=== PATIENT | male | born 1980 | race African-American/Black ===

== ENCOUNTER 2017-12-21 19:24 | Emergency (ER) | payer MEDICAID ==
[~2017-12-21] VITALS: Ht 182.9 cm; Wt 154.2 kg
[~2017-12-21 19:24] MED LIST: [UNRECOGNIZED DRUG - REMARK]
[2017-12-21 19:40] VITALS: BP 159/105
[2017-12-21 20:14] LABS: BASOPHILS % (AUTO) 0.5 % (0.0-2.0); EOSINOPHILS % (AUTO) 7.1 % (0.0-6.0); HEMATOCRIT 38 % (39-51); HEMOGLOBIN 12.6 g/dL (13.5-17.5); LYMPHOCYTES # (AUTO) 2.4 /CMM (0.8-4.8); LYMPHOCYTES % (AUTO) 37.8 % (20.0-44.0); MEAN CORPUSCULAR HGB CONC 33 g/dl (31.0-36.0); MEAN CORPUSCULAR VOLUME 74 fL (80-96); MONOCYTES # (AUTO) 0.6 /CMM (0.1-1.30); MONOCYTES % (AUTO) 9.2 % (2.0-12.0); NEUTROPHILS # (AUTO) 2.9 /CMM (1.8-8.9); NEUTROPHILS % (AUTO) 45.4 % (43.0-81.0); PLATELET COUNT (AUTO) 314 /CMM (150-450); RDW COEFFICIENT OF VARIATION 14.9 (11.5-15.0); RED BLOOD CELL COUNT(AUTO) 5.21 MIL/uL (4.5-6.0); WHITE BLOOD COUNT (AUTO) 6.4 K/uL (4.3-11.0)
== END 2017-12-21 20:13 | disposition home or self-care (01) ==
LOC: ER 19:24
DX: K92.1 Melena (principal)
CPT/HCPCS: 36415; 85025; 99283; A4606; Z7610

== ENCOUNTER 2019-01-19 23:18 | Emergency (ER) | payer SELFPAY ==
--- NOTE | 2019-01-19 23:47 | NUR ---
CALLED TO BE TRIAGED, NO ANSWER
--- NOTE | 2019-01-19 23:55 | NUR ---
CALLED PT TO BE TRIAGED, NO ANSWER
--- NOTE | 2019-01-20 01:00 | NUR ---
CALLED PT TO BE TRIAGED, NO ANSWER
== END 2019-01-20 01:05 | disposition left against medical advice (07) ==
LOC: ER 23:25
DX: Z53.21 Procedure and treatment not carried out due to patient leaving prior to being seen by health care provider (principal)

== ENCOUNTER 2019-01-24 20:26 | Emergency (ER) | payer SELFPAY ==
[~2019-01-24] VITALS: Ht 182.9 cm; Wt 148.3 kg
--- NOTE | 2019-01-24 21:52 | NUR ---
PT NAME CALLED IN WAITING AREA. NO RESPONSE.
--- NOTE | 2019-01-24 22:13 | NUR ---
PATIENT LEFT BEFORE TRIAGE ASSESSMENT.
[2019-01-24 22:54] VITALS: BP 160/111
--- NOTE | 2019-01-24 23:00 | NUR ---
PT RETURNED AND WAS TRIAGED. PT AMBULATED TO THE BATHROOM AND A URINE SAMPLE WAS OBTAINED. PT THEN AMBULATED TO ER #4. Doe VELÁSQUEZ PAC IS AT THE BEDSIDE.
[2019-01-24 23:18] LABS: APPEARANCE,URINE Clear (CLEAR); BILIRUBIN,URINE Negative (NEGATIVE); BLOOD, URINE Negative Ery/uL (NEGATIVE); COLOR,URINE Yellow (YELLOW); KETONES,URINE Trace (NEGATIVE); LEUKOCYTE ESTERASE ,URINE Negative (NEGATIVE); NITRITE, URINE Negative (NEGATIVE); PH,URINE 5.5 (5.0-8.0); PROTEIN,URINE Negative (NEGATIVE); UGLUCOSE Negative (NEGATIVE)
[2019-01-24] MEDS ORDERED: AZITHROMYCIN 250 MG TABLET ONE (23:27)
[2019-01-24] MEDS ORDERED: METRONIDAZOLE 500 MG TABLET ONE (23:27)
[2019-01-24] MEDS ORDERED: LIDOCAINE /MPF 1% VIAL 5 ML VIAL ONE (23:27)
[2019-01-24] MEDS ORDERED: CEFTRIAXONE 500 MG VIAL ONE (23:27)
[2019-01-24 23:29] LABS: BACTERIA,URINE Few /HPF (None Seen); RBC,URINE 0-2 /HPF (0-2); SQUAMOUS EPITHELIAL CELL,UR Rare /HPF (None Seen)
[2019-01-24] MEDS: METRONIDAZOLE 500 MG TABLET PO ONE (23:30)
[2019-01-24] MEDS: AZITHROMYCIN 250 MG TABLET PO ONE (23:30)
[2019-01-24] MEDS: CEFTRIAXONE 500 MG VIAL IM ONE (23:30)
--- NOTE | 2019-01-24 23:30 | NUR ---
PT REC'D MEDICATION ORDERED.
--- NOTE | 2019-01-24 23:50 | NUR ---
Doe VELÁSQUEZ PA-C IS AT THE BEDSIDE SPEAKING TO THE PT AND HIS .
--- NOTE | 2019-01-25 00:01 | NUR ---
Patient discharged to home in stable condition. Written and verbal after care instructions given. Patient verbalizes understanding of instruction. PT AMBULATED OUT WITH A STEADY GAIT. VSS. NAD NOTED.
== END 2019-01-25 00:12 | disposition left against medical advice (07) ==
LOC: ER 20:29
DX: Z20.2 Contact with and (suspected) exposure to infections with a predominantly sexual mode of transmission (principal); F17.200 Nicotine dependence, unspecified, uncomplicated
CPT/HCPCS: 81001; 87086; 87491; 87591; 96372; 99283; J0696; J3490; 81000-TC

== ENCOUNTER 2019-07-22 15:39 | Emergency (ER) | payer SELFPAY ==
[~2019-07-22] VITALS: Ht 182.9 cm; Wt 147.4 kg
--- NOTE | 2019-07-22 16:04 | NUR ---
PT BIB C/O CHEST PAIN PRESSURE LIKE NON RADIATING STARTED THIS THROAT PAIN FOR 2 DAYS. PT AAOX4, VSS, BREATHING EVEN AND UNLABORED ON ROOM AIR W/ NAD NOTED. PT CONNECTED TO THE MONITOR AND POX
[2019-07-22] MEDS ORDERED: KETOROLAC TROMETHAMINE 15 MG/ML VIAL ONE (16:29)
[2019-07-22] MEDS ORDERED: ASPIRIN 81 MG TAB.CHEW ONE (16:29)
[2019-07-22] MEDS ORDERED: DEXAMETHASONE SOD PHOSPHATE 10 MG/ML VIAL ONE (16:29)
[2019-07-22] MEDS ORDERED: ASPIRIN 81 MG TAB.CHEW PO ONE (16:30)
[2019-07-22] MEDS ORDERED: IV NS 0.9% 1,000 ML BAG IV ONE (16:30)
[2019-07-22] MEDS ORDERED: KETOROLAC TROMETHAMINE INJ 30 MG/ML VIAL IV ONE (16:30)
[2019-07-22] MEDS ORDERED: DEXAMETHASONE SOD PHOSPHATE 10 MG/ML VIAL IV ONE (16:30)
[2019-07-22 16:35] LABS: BASOPHILS # (AUTO) 0.1 /CMM (0.0-0.2); BASOPHILS % (AUTO) 0.6 % (0.0-2.0); HEMATOCRIT 34 % (39-51); HEMOGLOBIN 10.3 g/dL (13.5-17.5); LYMPHOCYTES # (AUTO) 1.5 /CMM (0.8-4.8); LYMPHOCYTES % (AUTO) 15.3 % (20.0-44.0); MEAN CORPUSCULAR HGB CONC 31 g/dl (31.0-36.0); MEAN CORPUSCULAR VOLUME 68 fL (80-96); MONOCYTES # (AUTO) 0.9 /CMM (0.1-1.30); MONOCYTES % (AUTO) 9.3 % (2.0-12.0); NEUTROPHILS # (AUTO) 6.5 /CMM (1.8-8.9); NEUTROPHILS % (AUTO) 67.8 % (43.0-81.0); PLATELET COUNT (AUTO) 303 /CMM (150-450); RED BLOOD CELL COUNT(AUTO) 4.92 MIL/uL (4.5-6.0); WHITE BLOOD COUNT (AUTO) 9.6 K/uL (4.3-11.0)
[2019-07-22 16:52] LABS: CALCIUM, SERUM 8.8 mg/dL (8.5-10.1); CARBON DIOXIDE 29 mmol/L (21-32); CHLORIDE 106 mmol/L (98-107); GLUCOSE 90 mg/dL (74-106); POTASSIUM 4.1 mmol/L (3.5-5.1); SODIUM SERUM 141 mmol/L (136-145); UREA NITROGEN, BLOOD 12 mg/dL (7-18)
[2019-07-22 16:56] LABS: ALANINE AMINOTRANSFERASE 39 U/L (12-78); ALBUMIN 3.1 g/dL (3.4-5.0); ALKALINE PHOSPHATASE 99 U/L (46-116); ASPARTATE AMINOTRANSFERASE 25 U/L (15-37); BILIRUBIN,TOTAL 0.2 mg/dL (0.2-1.0); TOTAL PROTEIN, SERUM 8.1 g/dL (6.4-8.2)
--- NOTE | 2019-07-22 17:35 | NUR ---
SWAB SENT TO LAB
[2019-07-22 17:55] LABS: EOSINOPHILS % (MANUAL) 2 % (0-4); LYMPHOCYTES % (MANUAL) 10 % (16-48); MONOCYTES % (MANUAL) 12 % (0-11.0); NEUTROPHILS % (MANUAL) 73 (42-76); REACTIVE LYMPHOCYTES 3 % (0-0)
[2019-07-22] MEDS ORDERED: PENICILLIN G BENZATHINE 2.4 MMU/4 ML ML IM ONE ×2 (18:58→19:00)
[2019-07-22 19:13] VITALS: BP 135/81
--- NOTE | 2019-07-22 19:13 | NUR ---
Patient discharged to home in stable condition. Written and verbal after care instructions given. Patient verbalizes understanding of instruction.IV removed. Catheter intact and site benign. Pressure and 4x4 applied to site. No bleeding noted.
== END 2019-07-22 19:16 | disposition home or self-care (01) ==
LOC: ER 15:44
DX: J02.0 Streptococcal pharyngitis (principal); R00.2 Palpitations; R59.0 Localized enlarged lymph nodes; R11.0 Nausea; R09.81 Nasal congestion; F10.10 Alcohol abuse, uncomplicated; F17.200 Nicotine dependence, unspecified, uncomplicated; R00.0 Tachycardia, unspecified; Y90.9 Presence of alcohol in blood, level not specified
CPT/HCPCS: 36415; 71045; 80048; 80076; 84484; 85025; 87804 ×2; 87880; 93005; 96372; 96374; 96375; 99284; J0558; J1100; J1885; 86403-TC

== ENCOUNTER 2019-11-30 22:33 | Emergency (ER) | payer SELFPAY ==
[~2019-11-30] VITALS: Ht 182.9 cm; Wt 152.0 kg
--- NOTE | 2019-11-30 22:50 | NUR ---
PT AAOX4. AMBULATORY WITH STEADY GAIT. BIBSELF C/O REQUESTING STD PROPHALAXIS DUE TO UNPROTECTED SEX PER PT REPORT. PT PROVIDED URINE SAMPLE. VSS.
[2019-11-30] MEDS ORDERED: AZITHROMYCIN 250 MG TABLET ONE (23:04)
[2019-11-30] MEDS ORDERED: CEFTRIAXONE 500 MG VIAL ONE (23:04)
[2019-11-30] MEDS ORDERED: LIDOCAINE /MPF 1% VIAL 5 ML VIAL ONE (23:05)
[2019-11-30] MEDS ORDERED: METRONIDAZOLE 500 MG TABLET ONE (23:08)
[2019-11-30] MEDS: AZITHROMYCIN 250 MG TABLET PO ONE (23:12)
[2019-11-30] MEDS: CEFTRIAXONE 500 MG VIAL IM ONE (23:12)
[2019-11-30] MEDS: METRONIDAZOLE 500 MG TABLET PO ONE (23:12)
[2019-11-30 23:16] LABS: APPEARANCE,URINE Clear (CLEAR); BILIRUBIN,URINE Negative (NEGATIVE); BLOOD, URINE Negative Ery/uL (NEGATIVE); COLOR,URINE Yellow (YELLOW); KETONES,URINE Negative (NEGATIVE); LEUKOCYTE ESTERASE ,URINE Negative (NEGATIVE); NITRITE, URINE Negative (NEGATIVE); PROTEIN,URINE Negative (NEGATIVE); UGLUCOSE Negative (NEGATIVE); UROBILINOGEN,URINE 0.2 EU/dL (0.2)
--- NOTE | 2019-12-01 00:02 | NUR ---
Patient discharged to home in stable condition. Written and verbal after care instructions given. Patient verbalizes understanding of instruction. Pt ambulated with steady gait.
[2019-12-01 00:03] VITALS: BP 128/82
== END 2019-12-01 00:03 | disposition home or self-care (01) ==
LOC: ER 22:33
DX: Z20.2 Contact with and (suspected) exposure to infections with a predominantly sexual mode of transmission (principal); F17.200 Nicotine dependence, unspecified, uncomplicated
CPT/HCPCS: 81001; 87491; 87591; 96372; 99283; J0696; J3490; 81000-TC

== ENCOUNTER 2020-11-29 18:31 | Inpatient (IN) | payer MEDICAID ==
[~2020-11-29] VITALS: Ht 182.9 cm; Wt 160.3 kg
[2020-11-29] MEDS ORDERED: IV NS 0.9% 1,000 ML BAG IV ONE (19:00)
--- NOTE | 2020-11-29 19:12 | NUR ---
Palpitation x1week feel lightheaded/dizzy/get SOB. + Congestion- chronic. PT AAOX4, VSS. RR EVEN & UNLABORED. DENIES CP, SOB, N/V AT THIS TIME. PT SEEN & EVAL'D BY SD DE LA TORRE. PLACED ON HEAD BUYER TOBACCO, SR. WILL CONT TO MONITOR.
[2020-11-29 19:15] LABS: BASOPHILS % (AUTO) 0.6 % (0.0-2.0); WHITE BLOOD COUNT (AUTO) 7.2 K/uL (4.3-11.0)
[2020-11-29 19:17] LABS: EOSINOPHILS % (AUTO) 7.6 % (0.0-6.0); LYMPHOCYTES # (AUTO) 1.3 /CMM (0.8-4.8); LYMPHOCYTES % (AUTO) 17.5 % (20.0-44.0); MEAN CORPUSCULAR HGB CONC 29 g/dl (31.0-36.0); MEAN CORPUSCULAR VOLUME 53 fL (80-96); MONOCYTES # (AUTO) 0.6 /CMM (0.1-1.30); MONOCYTES % (AUTO) 8.1 % (2.0-12.0); NEUTROPHILS # (AUTO) 4.8 /CMM (1.8-8.9); NEUTROPHILS % (AUTO) 66.2 % (43.0-81.0); PLATELET COUNT (AUTO) 377 /CMM (150-450); RED BLOOD CELL COUNT(AUTO) 3.14 MIL/uL (4.5-6.0)
[2020-11-29 19:19] LABS: HEMATOCRIT 17 % (39-51); HEMOGLOBIN 4.8 g/dL (13.5-17.5)
--- NOTE | 2020-11-29 19:30 | NUR ---
RECEVIED REPORT FOR VALDEZ FROM DAY SHIFT NURSE, PATIENT IN NO ACUTE DISTRESS, PATIENT BED NOT WORKING, CHANGE PATIENT TO NEW BED. WILL CONTINUE TO MONITOR.
[2020-11-29 19:35] LABS: B-TYPE NATRIURETIC PEPTIDE 46 PG/ML (0-125); CALCIUM, SERUM 8.3 mg/dL (8.5-10.1); CARBON DIOXIDE 29 mmol/L (21-32); CHLORIDE 100 mmol/L (98-107); GLUCOSE 123 mg/dL (74-106); POTASSIUM 3.9 mmol/L (3.5-5.1); SODIUM SERUM 136 mmol/L (136-145); UREA NITROGEN, BLOOD 11 mg/dL (7-18)
--- NOTE | 2020-11-29 19:43 | NUR ---
COVID SWAB COLLECTED, SENT TO LAB
--- NOTE | 2020-11-29 19:50 | NUR ---
FECAL OCCULT BLOOD COLLECTED AND SENT TO LAB
[2020-11-29] MEDS ORDERED: IV NS 0.9% 250 ML IV ONE (19:53)
[2020-11-29] MEDS ORDERED: CT SWABBABLE VALVE TRANS SET 1 EA INFUS.SET MC ONE (19:53)
[2020-11-29] MEDS ORDERED: IOHEXOL-300 100 ML VIAL IV ONE (19:53)
[2020-11-29 19:54] LABS: OCCULT BLOOD STOOL NEGATIVE (NEGATIVE)
--- NOTE | 2020-11-29 19:57 | NUR ---
BROUGHT BY RADIOLOGY TO CT
[2020-11-29] MEDS ORDERED: ALBUTEROL FS 2.5 MG/3 ML VIAL.NEB NEB ONE (20:00)
[2020-11-29] MEDS ORDERED: ALBUTEROL FS 2.5 MG/3 ML VIAL.NEB ONE (20:19)
--- NOTE | 2020-11-29 20:32 | NUR ---
RT AT BEDSIDE
[2020-11-29 20:37] LABS: EOSINOPHILS % (MANUAL) 9 % (0-4); LYMPHOCYTES % (MANUAL) 23 % (16-48); MONOCYTES % (MANUAL) 3 % (0-11.0); NEUTROPHILS % (MANUAL) 65 (42-76)
--- NOTE | 2020-11-29 20:47 | NUR ---
SD DE LA TORRE SPEAKING WITH DORY CALDWELL REGARDING ADMISSION
[2020-11-29] MEDS ORDERED: OXYMETAZOLINE HCL NASAL SPRAY 30 ML BOTTLE NS ONE ×2 (20:51→21:00)
[2020-11-29] MEDS ORDERED: ONDANSETRON HCL/PF 4 MG/2 ML VIAL IVP PRN (21:00)
[2020-11-29] MEDS ORDERED: Z GUARD REMEDY 2 OZ OINT TP PRN (21:00)
[2020-11-29] MEDS: PANTOPRAZOLE 40 MG VIAL IV SCH (21:00)
[2020-11-29] MEDS ORDERED: SOD FERRIC GLUC 125 MG in IV NS 0.9% 100 ML IV SCH (21:00)
[2020-11-29] MEDS ORDERED: MAGNESIUM HYDROXIDE 30 ML UDC PO PRN (21:00)
[2020-11-29] MEDS ORDERED: MAG HYDROX/AL HYDROX/SIMETH 30 ML UDC PO PRN (21:00)
[2020-11-29 21:45] VITALS: BP 142/80
--- NOTE | 2020-11-29 21:45 | NUR ---
INITIATED BLOOD TRANSFUSION, PT V/S ARE WNL.
[2020-11-29 22:00] VITALS: BP 141/78
--- NOTE | 2020-11-29 22:26 | NUR ---
REPORT GIVEN TO RN EVERT, PATIENT GOING TO ROOM 107
--- NOTE | 2020-11-29 22:37 | NUR ---
PATIENT TRANSFERRED VIA [facility] PROTOCOL, ROOM 107
[2020-11-29 22:48] VITALS: BP 151/83
[2020-11-29 23:00] VITALS: BP 151/83
--- NOTE | 2020-11-29 23:00 | NUR ---
TELE ADMISSION PATIENT BROUGHT IN VIA GURNEY. BLOOD RUNNING IN PLACE IN R. AC. @164.5ML/HR. INITIAL ADMISSION VS FOLLOW: T- 99.O, P-92, RR- 20, BP- 151/83. NO TRANSFUSION REACTION NOTED.
[2020-11-29 23:42] VITALS: BP 151/83
[2020-11-30] VITALS (20 sets, daily range): BP systolic 113–154; BP diastolic 61–91
--- NOTE | 2020-11-30 00:05 | NUR ---
SCREEDMAN NOTES 1 UNIT OF BLOOD DONE TRANSFUSING. VS WNL. NO TRANSFUSION REACTION NOTED. PATIENT PASSED RED STOOL AFTER TRANSFUSION. NOTIFIED DORY KULKARNI. CHARGE NURSE KNOW. WILL CONTINUE TO MONITOR.
--- NOTE | 2020-11-30 00:06 | NUR ---
DORMITORY COUNSELOR NOTES 2ND UNIT BEING STARTED. VS WNL. WILL CONTINUE TO MONITOR.
[2020-11-30 01:10] LABS: HEMOGLOBIN 5.1 g/dL (13.5-17.5)
--- NOTE | 2020-11-30 01:10 | NUR ---
VALVE MAKER NOTES PATIENT NO TRANSFUSION REACTION AFTER 15 MINUTES OF 2ND UNIT. VS: BP- 154/91, T-99, P- 10, RR-18. WILL CONTINUE TO MONITOR.
--- NOTE | 2020-11-30 02:10 | NUR ---
VULNERABILITY RESEARCHER NOTES PATIENT VS 60 MINUTES THE SECOND UNIT FOLLOW: BP- 113/61, T-98.7, 93% SATURATION, P-89. WILL CONTINUE TO MONITOR.
--- NOTE | 2020-11-30 03:00 | NUR ---
NURSING PROGRAM CHAIR NOTES BLOOD TRANSFUSION COMPLETE. VS FOLLOWS: T-98.6, 95% O2 SAT, P-89, BP- 137/87. NO REACTION NOTED. WILL CONTINUE TO MONITOR.
[2020-11-30] MEDS: IV NS 0.9% 1,000 ML IV PRN (03:13)
--- NOTE | 2020-11-30 05:53 | NUR ---
MS RN NOTES 3RD BAG OF BLOOD TRANSFUSING. INITIAL VS: BP: 138/86, T- 97.6, HR- 87, RR- 20, 02 SAT 95%. WILL CONTINUE TO MONITOR
[2020-11-30 06:31] LABS: BASOPHILS % (AUTO) 0.5 % (0.0-2.0); EOSINOPHILS % (AUTO) 7.7 % (0.0-6.0); LYMPHOCYTES # (AUTO) 1.2 /CMM (0.8-4.8); LYMPHOCYTES % (AUTO) 16.5 % (20.0-44.0); MEAN CORPUSCULAR HGB CONC 30 g/dl (31.0-36.0); MEAN CORPUSCULAR VOLUME 58 fL (80-96); MONOCYTES # (AUTO) 0.6 /CMM (0.1-1.30); MONOCYTES % (AUTO) 8.6 % (2.0-12.0); NEUTROPHILS # (AUTO) 4.7 /CMM (1.8-8.9); NEUTROPHILS % (AUTO) 66.7 % (43.0-81.0); PLATELET COUNT (AUTO) 363 /CMM (150-450); RED BLOOD CELL COUNT(AUTO) 3.46 MIL/uL (4.5-6.0); WHITE BLOOD COUNT (AUTO) 7.1 K/uL (4.3-11.0)
--- NOTE | 2020-11-30 06:49 | NUR ---
MEN'S GARMENT FITTER CLOSING PATIENT IN BED SLEEPING. TRANSFUSED 2 UNITS OF BLOOD. 3RD ONE ONGOING. PATIENT NPO AND HE KNOWS. PATIENT REPORTS HAVING SLEEP APNEA, PUT HIM ON 2 LPM OF OXYGEN WITH THE HOB UP. ABLE TO MAKE NEEDS KNOWN. ALL NEEDS ATTENDED. NO S/S OF DISTRESS. NO C/O PAIN AT THE MOMENT. SAFETY KEPT IN PLACE THE WHOLE SHIFT: BED IN LOWEST, LOCKED POSITION; CALL LIGHT WITHIN REACH. WILL ENDORSE CARE TO MORNING SHIFT NURSE.
[2020-11-30 06:53] LABS: HEMATOCRIT 20 % (39-51)
[2020-11-30 06:55] LABS: THYROID STIMULATING HORMONE 3.005 uIU/mL (0.358-3.74)
--- NOTE | 2020-11-30 06:57 | NUR ---
RN NOTES Hgb 6.1 after 2nd unit PRBC; 3rd unit transfusing. Another unit to be given. with H/H scheduled at 12noon. Dr. Amirah Lo notified. NNO made.
[2020-11-30 07:00] LABS: CALCIUM, SERUM 8.2 mg/dL (8.5-10.1); CREATININE 0.9 mg/dL (0.6-1.3); MAGNESIUM 2.1 mg/dL (1.8-2.4); PHOSPHORUS 4.1 mg/dL (2.5-4.9); POTASSIUM 4.4 mmol/L (3.5-5.1)
--- NOTE | 2020-11-30 07:13 | NUR ---
WILDLIFE VETERINARIAN NOTES GOT THE LAST SET OF VS I COULD GET, DOCUMENTED ON TRANSFUSION. WILL ENDORSE CARE TO MORNING SHIFT NURSE.
--- NOTE | 2020-11-30 07:30 | NUR ---
RN OPENING NOTES Patient is alert and oriented. Patient is on room air with 02 saturation of 96%. Patient is NPO per md orders. Right ac 18 GAUZE noted with blood transfusion running at 60 cc/hour. Patient is s/p 2 units of PRBC and currently on his 3rd bag per report. Will continue to monitor. Call light with in reach. Bed is in lowest and locked position.
[2020-11-30 08:39] LABS: EOSINOPHILS % (MANUAL) 5 % (0-4); LYMPHOCYTES % (MANUAL) 17 % (16-48); MONOCYTES % (MANUAL) 10 % (0-11.0); NEUTROPHILS % (MANUAL) 68 (42-76)
[2020-11-30] MEDS: PANTOPRAZOLE 40 MG VIAL IV SCH ×3 (08:41→16:53)
[2020-11-30] MEDS: DOCUSATE SODIUM 250 MG CAPSULE PO SCH ×2 (12:47→16:53)
--- NOTE | 2020-11-30 13:39 | NUR ---
Patient transferred to [facility] in stable condition. No c/o pain or discomfort. No c/o sob, Received orders from Dr Bowen to have patient on clear liquid diet, NPO after midnight except meds and go lytlely in pm for EGD AND COLONOSCOPY. Informed Consents obtained. Endorsed to nurse in [facility] . Patient is s/p 3 units of PRBC.
[2020-11-30] MEDS: SOD FERRIC GLUC 125 MG in IV NS 0.9% 100 ML IV SCH (15:04)
[2020-11-30 16:08] LABS: BASOPHILS # (AUTO) 0.1 /CMM (0.0-0.2); BASOPHILS % (AUTO) 0.8 % (0.0-2.0); EOSINOPHILS % (AUTO) 8.7 % (0.0-6.0); HEMATOCRIT 22 % (39-51); LYMPHOCYTES # (AUTO) 1.3 /CMM (0.8-4.8); LYMPHOCYTES % (AUTO) 17.6 % (20.0-44.0); MEAN CORPUSCULAR HGB CONC 30 g/dl (31.0-36.0); MEAN CORPUSCULAR VOLUME 59 fL (80-96); MONOCYTES # (AUTO) 0.8 /CMM (0.1-1.30); MONOCYTES % (AUTO) 10.8 % (2.0-12.0); NEUTROPHILS # (AUTO) 4.5 /CMM (1.8-8.9); NEUTROPHILS % (AUTO) 62.1 % (43.0-81.0); PLATELET COUNT (AUTO) 346 /CMM (150-450); RED BLOOD CELL COUNT(AUTO) 3.72 MIL/uL (4.5-6.0); WHITE BLOOD COUNT (AUTO) 7.2 K/uL (4.3-11.0)
[2020-11-30 16:11] LABS: HEMOGLOBIN 6.7 g/dL (13.5-17.5)
[2020-11-30 16:30] LABS: BAND % (MANUAL) 2 % (0.0-5.0); EOSINOPHILS % (MANUAL) 12 % (0-4); LYMPHOCYTES % (MANUAL) 14 % (16-48); MONOCYTES % (MANUAL) 10 % (0-11.0); NEUTROPHILS % (MANUAL) 62 (42-76)
[2020-11-30] MEDS ORDERED: PEG 3350/NA SULF,BICARB,CL/KCL 4,000 ML BOTTLE PO ONE ×2 (18:00)
--- NOTE | 2020-11-30 18:23 | NUR ---
PROCUREMENT INTERN NOTES Patient received from [facility] floor 1 at 1530. A&Ox4, VSS. No c/o of pain or discomfort at this time. Will continue to monitor.
--- NOTE | 2020-11-30 18:38 | NUR ---
OSTEOLOGY TEACHER CLOSING NOTES Patient continues to be awake, alert, and oriented x4. VSS. Denies any more bloody stools at this time. Sinus rhythm around 90BPM. Able to stand up and use the restroom on own without getting dizzy or short of breath per patient. Tolerated clear liquid diet well. Patient educated on use of edmond before procedure tomorrow. Currently infusing 1 unit of pRBCs, VSS, no adverse reactions noted. Will endorse to next shift.
--- NOTE | 2020-11-30 20:00 | NUR ---
MS RN OPENING NOTE RECEIVED PT AWAKE IN BED. Z/O X4. PT IS STABLE ON ROOM AIR. NO SOB NOTED. NO S/S OF RESPIRATORY DISTRESS. PT IS AMBULATORY WITH BRP. PT UNDERGOING BLOOD TRANSFUSION AT THIS TIME. NO TRANSFUSION REACTIONS NOTED. IV ACCESS NOTED IN RAC #18. IV IS INTACT AND PATENT. SAFETY MEASURES MAINTAINED. BED IN LOWEST LOCKED POSITION, HOB ELEVATED, SIDE RAILS UP X2. CALL LIGHT AND TABLE WITHIN REACH. WILL CONTINUE WITH PLAN OF CARE.
[2020-12-01 00:09] LABS: HEMOGLOBIN 7.6 g/dL (13.5-17.5)
[2020-12-01] MEDS ORDERED: SORBITOL SOLUTION 30 ML PO ONE (06:00)
--- NOTE | 2020-12-01 06:07 | NUR ---
MS RN CLOSING NOTE PT IS AWAKE IN BED AT THIS TIME. A/O X4. PT IS STABLE ON ROOM AIR. NO SOB NOTED. NO S/S OF RESPIRATORY DISTRESS. PT IS AMBULATORY WITH BRP. IV IS INTACT, PATENT, AND FLUSHING WELL. ALL NEEDS HAVE BEEN MET. SAFETY MEASURES MAINTAINED. BED IN LOWEST LOCKED POSITION, HOB ELEVATED, SIDE RAILS UP X2. CALL LIGHT AND TABLE WITHIN REACH. WILL CONTINUE WITH PLAN OF CARE.
[2020-12-01 08:00] VITALS: BP 139/79
--- NOTE | 2020-12-01 08:10 | NUR ---
MS/RN OPENING NOTES RECEIVED PATIENT AWAKE IN BED, ALERT AND ORIENTED X4. ABLE TO MAKE NEEDS KNOWN. AMBULATORY WITH BRP. PATIENT ON ROOM AIR. NO SOB NOTED. NO S/S OF RESPIRATORY DISTRESS. IV ON RIGHT AC IS INTACT, PATENT, AND FLUSHING WELL. ALL NEEDS HAVE BEEN MET. SAFETY MEASURES MAINTAINED. BED IN LOWEST LOCKED POSITION, HOB ELEVATED, SIDE RAILS UP X2. CALL LIGHT AND TABLE WITHIN REACH. WILL CONTINUE TO MONITOR.
[2020-12-01] MEDS: PANTOPRAZOLE 40 MG VIAL IV SCH ×2 (08:54→16:42)
[2020-12-01] MEDS: DOCUSATE SODIUM 250 MG CAPSULE PO SCH ×2 (09:00→16:42)
--- NOTE | 2020-12-01 10:35 | NUR ---
MS/RN NOTES PATIENT COMPLAINED OF STUFFY NOSE, PER PATIENT HE WAS NOT ABLE TO SLEEP WELL LAST NIGHT BECAUSE OF IT. REPORTED ASSESSMENT TO DR. BATISTA AND MD ORDERED AFRIN DECONGESTANT NASAL SPRAY 1 SPRAY EACH NOSTRIL BID PRN. CARRIED OUT ORDER. WILL CONTINUE TO MONITOR.
[2020-12-01 10:57] LABS: BASOPHILS # (AUTO) 0.1 /CMM (0.0-0.2); BASOPHILS % (AUTO) 1.3 % (0.0-2.0); EOSINOPHILS % (AUTO) 8.2 % (0.0-6.0); HEMATOCRIT 26 % (39-51); HEMOGLOBIN 8.1 g/dL (13.5-17.5); LYMPHOCYTES % (AUTO) 14.2 % (20.0-44.0); MEAN CORPUSCULAR HGB CONC 32 g/dl (31.0-36.0); MEAN CORPUSCULAR VOLUME 60 fL (80-96); MONOCYTES # (AUTO) 0.5 /CMM (0.1-1.30); MONOCYTES % (AUTO) 7.3 % (2.0-12.0); NEUTROPHILS # (AUTO) 5.1 /CMM (1.8-8.9); PLATELET COUNT (AUTO) 359 /CMM (150-450); RED BLOOD CELL COUNT(AUTO) 4.25 MIL/uL (4.5-6.0); WHITE BLOOD COUNT (AUTO) 7.3 K/uL (4.3-11.0)
[2020-12-01] MEDS ORDERED: OXYMETAZOLINE HCL NASAL SPRAY 30 ML BOTTLE NS PRN (11:00)
[2020-12-01 11:08] LABS: CALCIUM, SERUM 9.1 mg/dL (8.5-10.1); MAGNESIUM 2.3 mg/dL (1.8-2.4); PHOSPHORUS 3.6 mg/dL (2.5-4.9); POTASSIUM 3.9 mmol/L (3.5-5.1)
[2020-12-01] MEDS ORDERED: ANESTHESIA TRAY IN PYXIS 1 EA TRAY MC ONE (11:22)
[2020-12-01] MEDS ORDERED: PHENYLEPHRINE 0.5% NASAL SPRAY 15 ML BOTTLE NS PRN (11:30)
--- NOTE | 2020-12-01 11:36 | NUR ---
MS/RN NOTES PATIENT PICKED UP BY O.R. STAFFS FOR THE EGD AND COLONOSCOPY PROCEDURE. CONSENTS ARE SIGNED AND IN PLACE. NO DISCOMFORTS NOTED. WILL MONITOR WHEN PATIENT COMES BACK TO MED/SURG UNIT.
[2020-12-01] MEDS ORDERED: FAMOTIDINE/PF INJ 20 MG/2 ML VIAL IV ONE (12:00)
[2020-12-01] MEDS ORDERED: MIDAZOLAM HCL 2 MG/2ML VIAL ONE (12:00)
--- NOTE | 2020-12-01 14:00 | NUR ---
PATIENT RETURNED TO MED/SURG FROM OR. PATIENT IS ALERT AND ORIENTED X4. ABLE TO MAKE NEEDS KNOWN. ON OXYGEN VIA NASAL CANNULA AT 3 LPM WITH O2 SAT READING OF 99%. RECEIVED REPORT FROM LATOYA GUILLERMO. DR. AVIELS ORDERED TO RESUME PREVIOUS MEDS AND RESUME REGULAR DIET. V/S TAKEN FOLLOWS BP 133/82, T-98.4, RR-18, P-88. WILL CONTINUE TO MONITOR.
[2020-12-01] MEDS: SOD FERRIC GLUC 125 MG in IV NS 0.9% 100 ML IV SCH (14:25)
--- NOTE | 2020-12-01 14:32 | NUR ---
MS/RN NOTES DR. BATISTA ORDER MORPHINE 2 MG IV EVERY 4 HOUR PRN. NOTED AND CARRIED OUT.
[2020-12-01] MEDS: MORPHINE SULFATE INJ 2 MG/ML DISP.SYRIN IV PRN ×2 (14:43→20:35)
[2020-12-01 16:00] VITALS: BP 117/73
[2020-12-01] MEDS: IV NS 0.9% 1,000 ML IV PRN (17:18)
--- NOTE | 2020-12-01 19:19 | NUR ---
MS/RN CLOSING NOTES PATIENT AWAKE IN BED, ALERT AND ORIENTED X4. ABLE TO MAKE NEEDS KNOWN. S/P EGD COLONOSCOPY. COMPLAINED OF ABDOMINAL PAIN BUT WITH MORPHINE PRN. AMBULATORY WITH BRP. PATIENT ON ROOM AIR. NO SOB NOTED. NO S/S OF RESPIRATORY DISTRESS. IV ON RIGHT AC IS INTACT, PATENT, AND FLUSHING WELL. ALL NEEDS HAVE BEEN MET. SAFETY MEASURES MAINTAINED. BED IN LOWEST LOCKED POSITION, HOB ELEVATED, SIDE RAILS UP X2. CALL LIGHT AND TABLE WITHIN REACH. WILL ENDORSE TO THE NEXT SHIFT FOR CONTINUITY OF CARE.
[2020-12-01 20:00] VITALS: BP 133/71
--- NOTE | 2020-12-01 20:02 | NUR ---
MS RN OPENING NOTE RECEIVED PT AWAKE IN BED. A/O X4. PT IS STABLE ON ROOM AIR. NO SOB NOTED. NO S/S OF RESPIRATORY DISTRESS. PT IS AMBULATORY WITH STANDBY ASSIST. NO C/O PAIN OR DISCOMFORT AT THIS TIME. IV ACCESS NOTED IN RAC #18. IV IS INTACT AND PATENT. SAFETY MEASURES MAINTAINED. BED IN LOWEST LOCKED POSITION, HOB ELEVATED, SIDE RAILS UP X2. CALL LIGHT AND TABLE WITHIN REACH. WILL CONTINUE WITH PLAN OF CARE.
--- NOTE | 2020-12-01 20:35 | NUR ---
MS RN PAIN PT C/O ACHING PAIN IN ABDOMEN, RATED 8/10 ON PAIN SCALE. VS BP 133/71, HR 87, RR 20, T 98.8, SPO2 93%. PER PT REQUEST, ADMINISTERED MORPHINE 2MG IV Q4H PRN AT THIS TIME. WILL CONTINUE TO MONITOR.
[2020-12-02] MEDS: ACETAMINOPHEN 325 MG TABLET PO PRN (02:01)
--- NOTE | 2020-12-02 06:49 | NUR ---
MS RN CLOSING NOTE PT IS AWAKE IN BED AT THIS TIME. A/O X4. PT IS STABLE ON ROOM AIR. NO SOB NOTED. NO S/S OF RESPIRATORY DISTRESS. PT IS AMBULATORY WITH BRP. PT REQUESTED TO HAVE IV ACCESS REMOVED DUE TO DISCOMFORT WHEN BENDING ARM AND REFUSED IV ACCESS INSERTION. NO SIGNS OF INFILTRATION OR SWELLING AT IV SITE. ALL NEEDS HAVE BEEN MET. SAFETY MEASURES MAINTAINED. BED IN LOWEST LOCKED POSITION, HOB ELEVATED, SIDE RAILS UP X2. CALL LIGHT AND TABLE WITHIN REACH. WILL ENDORSE TO ONCOMING NURSE FOR CONTINUITY OF CARE.
[2020-12-02 07:10] LABS: BASOPHILS # (AUTO) 0.1 /CMM (0.0-0.2); BASOPHILS % (AUTO) 0.8 % (0.0-2.0); EOSINOPHILS % (AUTO) 5.7 % (0.0-6.0); HEMATOCRIT 24 % (39-51); HEMOGLOBIN 7.3 g/dL (13.5-17.5); LYMPHOCYTES # (AUTO) 1.3 /CMM (0.8-4.8); MEAN CORPUSCULAR HGB CONC 30 g/dl (31.0-36.0); MEAN CORPUSCULAR VOLUME 63 fL (80-96); MONOCYTES # (AUTO) 0.6 /CMM (0.1-1.30); MONOCYTES % (AUTO) 7.1 % (2.0-12.0); NEUTROPHILS # (AUTO) 5.5 /CMM (1.8-8.9); NEUTROPHILS % (AUTO) 69.4 % (43.0-81.0); PLATELET COUNT (AUTO) 355 /CMM (150-450); RED BLOOD CELL COUNT(AUTO) 3.88 MIL/uL (4.5-6.0); WHITE BLOOD COUNT (AUTO) 7.9 K/uL (4.3-11.0)
[2020-12-02 07:36] LABS: CALCIUM, SERUM 8.7 mg/dL (8.5-10.1); MAGNESIUM 2.3 mg/dL (1.8-2.4); PHOSPHORUS 4.5 mg/dL (2.5-4.9); POTASSIUM 4.2 mmol/L (3.5-5.1)
--- NOTE | 2020-12-02 07:44 | NUR ---
MS RN OPENING NOTE PATIENT IS IN BED SLEEPING AT THIS TIME, PATIENT IS NO ACUTE DISTRESS, PATIENT IS ON ROOM AIR TOLERATING WELL. PATIENT REQUESTED FOR THE IV TO BE OUT, AT THIS TIME HE DOES NOT WANT A NEW INSERTION OF THE IV. SAFETY PRECAUTIONS ARE ON, BED IS LOCKED AND IN THE LOWEST POSITION, WITH SIDE RAILS UP, CALL LIGHT WITHIN REACH. WILL CONTINUE TO MONITOR THROUGHOUT THE SHIFT.
[2020-12-02 08:00] VITALS: BP 131/71
[2020-12-02] MEDS: PANTOPRAZOLE 40 MG VIAL IV SCH ×2 (09:00→16:46)
--- NOTE | 2020-12-02 09:40 | NUR ---
MS RN NOTE PATIENT HAS SCHEDULED PROTONIX IV, PATIENT REQUESTED DATASTAGE DEVELOPER NURSE TO REMOVE HIS IV LINE, NOTIFIED MS URI BATISTA, ASKED TO SWITCH PROTONIX IV TO ORAL ROUTE. WAITING ON THE RESPONSE, EXPLAIN TO THE PATIENT IMPORTANCE OF THE IV LINE DURING HOSPITAL STAY, PATIENT AGREED TO RE INSERT A NEW IV LINE.
[2020-12-02] MEDS: DOCUSATE SODIUM 250 MG CAPSULE PO SCH ×2 (09:44→16:46)
[2020-12-02 11:07] LABS: *SPE A/G RATIO 0.7 (0.7-1.7); *SPE ALBUMIN 3.2 g/dL (2.9-4.4); *SPE ALPHA-1-GLOBULIN 0.3 g/dL (0.0-0.4); *SPE ALPHA-2-GLOBULIN 0.7 g/dL (0.4-1.0); *SPE BETA GLOBULIN 1.4 g/dL (0.7-1.3); *SPE GLOBULIN, TOTAL 4.3 g/dL (2.2-3.9); *SPE M-SPIKE Not Observed g/dL (Not Observed); IMMUNOGLOBULIN A, SERUM 379 mg/dL (90-386); IMMUNOGLOBULIN G, SERUM 1936 mg/dL (603-1613); IMMUNOGLOBULIN M, SERUM 145 mg/dL (20-172)
[2020-12-02] MEDS ORDERED: HYDROCORTISONE CR 30 GM TUBE RC PRN (14:00)
[2020-12-02] MEDS: SOD FERRIC GLUC 125 MG in IV NS 0.9% 100 ML IV SCH (14:54)
[2020-12-02 16:00] VITALS: BP 116/83
--- NOTE | 2020-12-02 18:55 | NUR ---
MS RN CLOSING NOTE PATIENT IS IN BED SLEEPING AT THIS TIME, PATIENT IS NO ACUTE DISTRESS, PATIENT IS ON ROOM AIR TOLERATING WELL. SAFETY PRECAUTIONS ARE ON, BED IS LOCKED AND IN THE LOWEST POSITION, WITH SIDE RAILS UP, CALL LIGHT WITHIN REACH. ENDORSE PATIENT TO AUTOMOTIVE TEACHER NURSE FOR VALDEZ.
--- NOTE | 2020-12-02 19:24 | NUR ---
MS RN NOTES PATIENT NOT BACK FROM NUCLEAR GI SCAN DURING VALDEZ REPORT. AND DAUGHTER IN THE ROOM WAITING. WILL MONITOR WHEN HE GETS BACK.
[2020-12-02 20:00] VITALS: BP 131/71
--- NOTE | 2020-12-02 20:00 | NUR ---
MR RN NOTES PATIENT CAME BACK AT AROUND 1930. A/OX4. EATING HIS DINNER. FAMILY WAS IN THE ROOM WITH PATIENT. NO S/S OF DISTRESS. NO C/O PAIN AT THE MOMENT. SAFETY IN PLACE: BED IN LOWEST, LOCKED POSITION. CALL LIGHT WITHIN REACH. WILL CONTINUE TO MONITOR.
[2020-12-03 04:35] VITALS: BP 131/71
--- NOTE | 2020-12-03 05:25 | NUR ---
MS RN NOTES PATIENT REFUSED BLOOD WORKS EVEN WITH PATIENT EDUCATION.
--- NOTE | 2020-12-03 06:25 | NUR ---
MS RN NOTES 322-1 PATIENT IN ROOM AMBULATING TO THE BATHROOM. A/OX4. PATIENT REPORTS HAVING SLEEP APNEA. NO S/S OF DISTRESS. NO C/O PAIN. REFUSED AM BLOOD WORKS. SAFETY KEPT IN PLACE THE WHOLE SHIFT: BED IN LOWEST, LOCKED POSITION; CALL LIGHT WITHIN REACH. NO SIGNIFICANT CHANGE SINCE LAST SHIFT, KNOWS OF THE 7.3 HGB LEVEL AND JUST CONT. TO MONITOR. WILL ENDORSE CARE TO MORNING SHIFT NURSE.
[2020-12-03 08:00] VITALS: BP 124/69
--- NOTE | 2020-12-03 08:03 | NUR ---
MS RN OPENING NOTE PATIENT IS IN BED RESTING, PATIENT IS NO ACUTE DISTRESS, PATIENT IS ON ROOM AIR TOLERATING WELL. SAFETY PRECAUTIONS ARE ON, BED IS LOCKED AND IN THE LOWEST POSITION, WITH SIDE RAILS UP, CALL LIGHT WITHIN REACH. WILL CONTINUE TO MONITOR THROUGHOUT THE SHIFT.
[2020-12-03] MEDS: PANTOPRAZOLE 40 MG VIAL IV SCH ×2 (08:50→17:26)
[2020-12-03] MEDS: DOCUSATE SODIUM 250 MG CAPSULE PO SCH ×2 (08:50→17:26)
[2020-12-03 11:11] LABS: BASOPHILS # (AUTO) 0.1 /CMM (0.0-0.2); BASOPHILS % (AUTO) 0.7 % (0.0-2.0); EOSINOPHILS % (AUTO) 5.5 % (0.0-6.0); HEMATOCRIT 27 % (39-51); HEMOGLOBIN 8.2 g/dL (13.5-17.5); LYMPHOCYTES # (AUTO) 1.6 /CMM (0.8-4.8); LYMPHOCYTES % (AUTO) 14.5 % (20.0-44.0); MEAN CORPUSCULAR HGB CONC 31 g/dl (31.0-36.0); MEAN CORPUSCULAR VOLUME 63 fL (80-96); MONOCYTES # (AUTO) 0.8 /CMM (0.1-1.30); MONOCYTES % (AUTO) 7.2 % (2.0-12.0); NEUTROPHILS # (AUTO) 7.8 /CMM (1.8-8.9); NEUTROPHILS % (AUTO) 72.1 % (43.0-81.0); PLATELET COUNT (AUTO) 389 /CMM (150-450); RED BLOOD CELL COUNT(AUTO) 4.25 MIL/uL (4.5-6.0); WHITE BLOOD COUNT (AUTO) 10.8 K/uL (4.3-11.0)
[2020-12-03 11:28] LABS: CREATININE 0.8 mg/dL (0.6-1.3); MAGNESIUM 2.2 mg/dL (1.8-2.4); PHOSPHORUS 3.1 mg/dL (2.5-4.9); POTASSIUM 3.8 mmol/L (3.5-5.1)
[2020-12-03] MEDS ORDERED: PIPERACILLIN /TAZOBACTAM 4.5 G in IV D5W 50 ML IV ONE (13:00)
[2020-12-03 14:05] LABS: BAND % (MANUAL) 2 % (0.0-5.0); EOSINOPHILS % (MANUAL) 1 % (0-4); LYMPHOCYTES % (MANUAL) 14 % (16-48); MONOCYTES % (MANUAL) 2 % (0-11.0); NEUTROPHILS % (MANUAL) 81 (42-76)
[2020-12-03] MEDS: ACETAMINOPHEN 325 MG TABLET PO PRN (14:21)
[2020-12-03] MEDS: SOD FERRIC GLUC 125 MG in IV NS 0.9% 100 ML IV SCH (15:05)
[2020-12-03 16:00] VITALS: BP 134/100
--- NOTE | 2020-12-03 18:42 | NUR ---
MS MACHINE FEEDER NOTE PATIENT IS IN NO ACUTE DISTRESS. PATIENT IS MEDICALLY STABLE TO BE DISCHARGED, PATIENTS NEEDS WERE MET DURING THE STAY. DISCHARGE INSTRUCTIONS PROVIDED, PATIENT VERBALIZED UNDERSTANDING. PATIENTS ID BAND AND IV LINE REMOVED. BELONGINGS LIST SIGNED. PATIENTS SKIN IS INTACT. PATIENT LEFT VIA PRIVATE CAR. MD IS AWARE OF DISCHARGE.
[2020-12-03] MEDS ORDERED: PIPERACILLIN /TAZOBACTAM 3.375 G in IV D5W 100 ML IV SCH (20:00)
== END 2020-12-03 18:30 | disposition home or self-care (01) | DRG 241 ==
LOC: ER 18:33 → TELE1 22:18 → MEDSG1 11-30 11:13 → MED 11-30 13:18
PROVIDERS: ADMIT Registered Nurse; ATTEND Internal Medicine
PROC: 0DB68ZX Excision of Stomach, Via Natural or Artificial Opening Endoscopic, Diagnostic (ICD-10-PCS; principal; 2020-12-01)
PROC: 0DJD8ZZ Inspection of Lower Intestinal Tract, Via Natural or Artificial Opening Endoscopic (ICD-10-PCS; 2020-12-01)
DX: K29.70 Gastritis, unspecified, without bleeding (principal); E66.01 Morbid (severe) obesity due to excess calories; I82.611 Acute embolism and thrombosis of superficial veins of right upper extremity; D50.9 Iron deficiency anemia, unspecified; F12.90 Cannabis use, unspecified, uncomplicated; J06.9 Acute upper respiratory infection, unspecified; Z68.42 Body mass index [BMI] 45.0-49.9, adult; K57.30 Diverticulosis of large intestine without perforation or abscess without bleeding; K42.9 Umbilical hernia without obstruction or gangrene; K64.8 Other hemorrhoids; Z86.16 Personal history of COVID-19; Z83.3 Family history of diabetes mellitus; K60.4 Rectal fistula; L02.31 Cutaneous abscess of buttock; Z20.822 Contact with and (suspected) exposure to COVID-19
CPT/HCPCS: 36415; 71045-TC; 80048-TC; 80061-TC; 82272-TC; 82378; 82728-TC; 82784; 83540-TC; 83735-TC; 83880; 84100-TC; 84155; 84165; 84443-TC; 84484-TC; 85025-TC; 85027-TC; 85378-TC; 86334; 86850-TC; 87081-TC; 87806; 88305-TC; 88313-TC; 88342; 93307-TC; 93971-TC; A9560; C9113; C9803; G0378; J0330; J2250; J2270; J2405; J2543; J2704; J2916; J3490; J7030; J7050; J7060; P9016; Q9967

== ENCOUNTER 2022-07-06 00:30 | Inpatient (IN) | payer MEDICAID ==
[2022-07-06] VITALS (8 sets, daily range): BP systolic 118–138; BP diastolic 61–78
[~2022-07-06] VITALS: Ht 61 cm; Wt 154.2 kg
--- NOTE | 2022-07-06 01:25 | NUR ---
PT BIBSELF C/O RAPID HEART RATE AND CP X 2 DAYS, WITH SOB. PT IS A/O X 4, RR EVEN. VSS. PATIENT IS AFEBRILE. NO ACUTE DISTRESS NOTED. PT TAKEN TO ER BED 03. PATIENT CONNECTED TO CARDAIC AND POX MONITOR.
[2022-07-06] MEDS ORDERED: IV NS 0.9% 1,000 ML IV ONE (01:30)
[2022-07-06 01:50] LABS: BASOPHILS # (AUTO) 0.1 K/uL (0.0-0.2); BASOPHILS % (AUTO) 0.9 % (0.0-2.0); HEMATOCRIT 21 % (39-51); LYMPHOCYTES # (AUTO) 1.5 K/uL (0.8-4.8); LYMPHOCYTES % (AUTO) 25.6 % (20.0-44.0); MEAN CORPUSCULAR HGB CONC 28 g/dl (31.0-36.0); MEAN CORPUSCULAR VOLUME 53 fL (80-96); MONOCYTES # (AUTO) 0.6 K/uL (0.1-1.30); MONOCYTES % (AUTO) 9.9 % (2.0-12.0); NEUTROPHILS # (AUTO) 3.3 K/uL (1.8-8.9); NEUTROPHILS % (AUTO) 55.6 % (43.0-81.0); PLATELET COUNT (AUTO) 374 K/uL (150-450); RED BLOOD CELL COUNT(AUTO) 3.99 MIL/uL (4.5-6.0)
--- NOTE | 2022-07-06 01:54 | NUR ---
RAD AT BEDSIDE
[2022-07-06 01:55] LABS: HEMOGLOBIN 5.9 g/dL (13.5-17.5)
[2022-07-06 02:02] LABS: CALCIUM, SERUM 8.2 mg/dL (8.5-10.1); CARBON DIOXIDE 31 mmol/L (21-32); CHLORIDE 106 mmol/L (98-107); GLUCOSE 107 mg/dL (74-106); POTASSIUM 3.6 mmol/L (3.5-5.1); SODIUM SERUM 142 mmol/L (136-145); UREA NITROGEN, BLOOD 13 mg/dL (7-18)
--- NOTE | 2022-07-06 02:02 | NUR ---
H/H 5.04/15 ER MADE AWARE
--- NOTE | 2022-07-06 02:04 | NUR ---
COVID SWAB COLLECTED
[2022-07-06 02:37] LABS: LYMPHOCYTES % (MANUAL) 27 % (16-48); MONOCYTES % (MANUAL) 6 % (0-11.0); NEUTROPHILS % (MANUAL) 59 (42-76)
[2022-07-06 02:38] LABS: BASOPHILS % (MANUAL) 0 % (0.0-2.0); EOSINOPHILS % (MANUAL) 8 % (0-4)
[2022-07-06] MEDS ORDERED: ONDANSETRON HCL/PF 4 MG/2 ML VIAL IVP PRN (04:00)
[2022-07-06] MEDS ORDERED: MAGNESIUM HYDROXIDE 30 ML UDC PO PRN (04:00)
[2022-07-06] MEDS ORDERED: IV NS 0.9% 1,000 ML IV PRN (04:00)
[2022-07-06] MEDS ORDERED: MAG HYDROX/AL HYDROX/SIMETH 30 ML UDC PO PRN (04:00)
[2022-07-06] MEDS ORDERED: Z GUARD REMEDY 4 OZ OINT TP PRN (04:00)
[2022-07-06] MEDS ORDERED: ZOLPIDEM TARTRATE 5 MG TABLET PO PRN (04:00)
--- NOTE | 2022-07-06 07:38 | NUR ---
GOT BED 327-1
--- NOTE | 2022-07-06 08:03 | NUR ---
REPORT GIVEN TO ANSHUL KLEIN
[2022-07-06] MEDS ORDERED: IBUP-1957 PO (08:16)
--- NOTE | 2022-07-06 08:43 | NUR ---
moved to inpatient room safely per ascls protocol
[2022-07-06] MEDS: PANTOPRAZOLE 40 MG VIAL IV SCH ×2 (09:06→21:18)
[2022-07-06] MEDS ORDERED: ZOSYN IVPB 3.375 G in IV D5W 50ml IV ONE (10:00)
--- NOTE | 2022-07-06 10:09 | NUR ---
LION HUNTERFILLER BLENDER NOTES PT ADMITTED TO UNIT VIA [facility] AT 0840 ACCOMPANIED BY Ragini CANDELARIA WITH DIAGNOSIS OF SEVERE ANEMIA. PT IS A/O X4, ABLE TO MAKE NEEDS KNOWN, NO C/O PAIN OR DISCOMFORTS AT THIS TIME. PT ORIENTED TO STAFF AND ROOM. V/S TAKEN AND RECORDED. PT ON ROOM AIR, TOLERATING WELL, BREATHING EVEN AND UNLABORED, NO ACUTE RESPIRATORY DISTRESS NOTED. PHOTOS OF SKIN ISSUES TAKEN AND FILED ON HIS CHART. IV ACCESS ON LEFT AC #20G INTACT AND PATENT, IVF OF NS @ 75ML/HR INITIATED PER MD ORDER. LUNGS CLEAR ON AUSCULTATION. ABDOMEN SOFT, FIRM AND NON-DISTENDED WITH POSITIVE BOWEL SOUNDS PRESENTS. PT PLACED ON EXTERNAL FLIGHT ATTENDANT WITH CURRENT READING SHOWING NSR, HR 81 BPM, NO C/O CARDIAC DISTRESS VOICED. SAFETY PRECAUTIONS IMPLEMENTED: BED IN LOWEST LOCKED POSITION, SIDE RAILS UP X2, CALL LIGHT AND TRAY TABLE PLACED W/I EASY REACH OF PT. WILL CONTINUE TO MONITOR PT.
[2022-07-06 10:40] LABS: IRON, SERUM 11 ug/dl (50-175); TOTAL IRON BINDING CAPACITY 438 ug/dl (250-450)
[2022-07-06 10:40] LABS: HEMOGLOBIN 6.1 g/dL (13.5-17.5)
--- NOTE | 2022-07-06 12:30 | NUR ---
RN NOTES BLOOD TRANSFUSION OF PRBC STARTED AT 1229 VIA IV ACCESS ON LAC G#20. V/S CHECKED, STABLE AND RECORDED. WILL MONITOR FOR ANY ADVERSE/ ALLERGIC REACTIONS.
--- NOTE | 2022-07-06 12:50 | NUR ---
RN NOTES NO ADVERSE/ ALLERGIC REACTIONS AFTER 15 MINUTES OF INITIATING BLOOD TRANSFUSION. V/S TAKEN, STABLE AND RECORDED. WILL CONTINUE TO MONITOR..
[2022-07-06] MEDS ORDERED: SOD FERRIC GLUC 125 MG in IV NS 0.9% 100 ML IV SCH (14:00)
[2022-07-06] MEDS: IRON SUCROSE COMPLEX 200 MG in IV NS 0.9% 100 ML IV SCH (14:29)
--- NOTE | 2022-07-06 15:48 | NUR ---
RN NOTES BLOOD TRANSFUSION JUST FINISHED AND PT TOLERATED WELL WITH NO ADVERSE/ ALLERGIC REACTIONS NOTED. V/S TAKEN, STABLE AND RECORDED. WILL CONTINUE TO MONITOR.
[2022-07-06] MEDS: PIPERACILLIN /TAZOBACTAM 3.375 G in IV D5W 100 ML IV SCH (17:06)
[2022-07-06 17:27] LABS: OCCULT BLOOD STOOL POSITIVE (NEGATIVE)
--- NOTE | 2022-07-06 18:40 | NUR ---
RN NOTES STOOL FOR OCCULT POSITIVE, LEFT MESSAGE TO DR GARCIA.
--- NOTE | 2022-07-06 18:49 | NUR ---
BLANKET INSPECTOR CLOSING NOTES PATIENT IN BED WATCHING TV AT THIS TIME. A/O X4. ABLE TO MAKE NEEDS KNOWN. AMBULATORY WITH STEADY GAIT. ON ROOM AIR, TOLERATING WELL, BREATHING EVEN AND UNLABORED. TELE-MONITOR SHOWS NSR WITH HR OF 88 BPM @ THIS TIME, NO C/O CARDIAC DISTRESS VOICED DURING SHIFT. IV ACCESS ON LAC G#20 AND CINDY MIDLINE G#18 BOTH INTACT, PATENT AND FLUSHES WELL. IVF OF NS RUNNING AT 75ML/HR VIA LAC. ALL NEEDS AND CARE PROVIDED WELL. SAFETY MEASURES IN PLACE: BED LOCKED AND AT LOWEST POSITION, SIDE-RAILS UP X2, TRAY TABLE AND CALL BENTLEY WITHIN REACH OF PT. WILL ENDORSE VALDEZ TO YARD SPECIALIST NURSE
--- NOTE | 2022-07-06 19:33 | NUR ---
HEAD BOOKKEEPER OPENING NOTE; RECEIVED PATIENT IN BED WATCHING TV AT THIS TIME. A/O X4. ABLE TO MAKE NEEDS KNOWN. AMBULATORY WITH STEADY GAIT. ON ROOM AIR, TOLERATING WELL, BREATHING EVEN AND UNLABORED. TELE,NO SIGN SOB/DISTRESS NOTED,IV ACCESS ON LAC G#20 AND CINDY MIDLINE G#18 BOTH INTACT, PATENT AND FLUSHES WELL. IVF OF NS RUNNING AT 75ML/HR,SAFETY MEASURES IN PLACE: BED LOCKED AND AT LOWEST POSITION, SIDE-RAILS UP X2, TRAY TABLE AND CALL BENTLEY WITHIN REACH,WILL CONTINUE TO MONITOR.
[2022-07-06 20:22] LABS: HEMOGLOBIN 6.8 g/dL (13.5-17.5)
--- NOTE | 2022-07-06 23:35 | NUR ---
RN NOTE; PT HGB LEVEL 6.8,TEXTED DOC,FAIZAN BEAN,WITH A NEW ORDER 1UNIT PRBC.
[2022-07-07] VITALS (9 sets, daily range): BP systolic 118–144; BP diastolic 56–83
--- NOTE | 2022-07-07 00:43 | NUR ---
RN NOTE; I TEXTED DOC,FAIZAN BEAN,VTE SCORE 2 AND PT COMPLAINED CAN'T SLEEP,PT ASKING FOR SLEEPING PILL.WITH A NEW ORDER,AMBIEN 10MG QHS PRN AND HEPARIN 5000 U SQ Q12HRS. Addendum: 07/07/22 at 0139 by GUNJAN MEDINA RN RN NOTE; WRONG PATIENT,MY NEW ADMIT RM 328-2
[2022-07-07] MEDS: PIPERACILLIN /TAZOBACTAM 3.375 G in IV D5W 100 ML IV SCH ×3 (01:15→17:00)
--- NOTE | 2022-07-07 02:21 | NUR ---
RN NOTE; PATIENT DONE WITH THE BLOOD TRANSFUSION,NO SIGN A/R NOTED.PT REMAINED STABLE V/S WNL.AND RECORDED,WILL CONTINUE TO MONITOR.
--- NOTE | 2022-07-07 06:08 | NUR ---
CORPORATE TRAVEL MANAGER CLOSING NOTE; PATIENT IN BED SLEEPING A/O X4. ABLE TO MAKE NEEDS KNOWN. ON ROOM AIR, TOLERATING WELL,NO SIGN SOB/DISTRESS BOTED, BREATHING EVEN AND UNLABORED.NO COMPLAIN OF PAIN/DISCOMFORT DURING SHIFT.DUE MEDS GIVEN ORDER,ALL NEEDS ATTENDED,IV ACCESS ON LAC G#20 AND CINDY MIDLINE G#18 BOTH INTACT, PATENT AND FLUSHES WELL. IVF OF NS RUNNING AT 75ML/HR,SAFETY MEASURES IN PLACE: BED LOCKED AND AT LOWEST POSITION, SIDE-RAILS UP X2, TRAY TABLE AND CALL BENTLEY WITHIN REACH,WILL ENDORSED TO NEXT SHIFT.
--- NOTE | 2022-07-07 07:30 | NUR ---
RN Accepting Note Patient AOx4 able to express his own concerns. Patient states he would like to discharge since he has an appointment related to work. Educated patient on importance of following physicians plan of care. PAtien states he will follow up as an outpatient. Patient with no signs of distress or discomfort, all safety precautions taken, call light and table within reach and bed at lowest position. Will monitor and provide care as needed
[2022-07-07 07:32] LABS: BASOPHILS # (AUTO) 0.1 K/uL (0.0-0.2); BASOPHILS % (AUTO) 1.3 % (0.0-2.0); EOSINOPHILS % (AUTO) 5.6 % (0.0-6.0); HEMATOCRIT 26 % (39-51); HEMOGLOBIN 7.5 g/dL (13.5-17.5); LYMPHOCYTES # (AUTO) 1.3 K/uL (0.8-4.8); LYMPHOCYTES % (AUTO) 18.3 % (20.0-44.0); MEAN CORPUSCULAR HGB CONC 29 g/dl (31.0-36.0); MEAN CORPUSCULAR VOLUME 58 fL (80-96); MONOCYTES # (AUTO) 0.5 K/uL (0.1-1.30); MONOCYTES % (AUTO) 6.9 % (2.0-12.0); NEUTROPHILS # (AUTO) 4.7 K/uL (1.8-8.9); NEUTROPHILS % (AUTO) 67.9 % (43.0-81.0); PLATELET COUNT (AUTO) 345 K/uL (150-450); RED BLOOD CELL COUNT(AUTO) 4.43 MIL/uL (4.5-6.0); WHITE BLOOD COUNT (AUTO) 6.9 K/uL (4.3-11.0)
[2022-07-07 07:59] LABS: BILIRUBIN,TOTAL 0.4 mg/dL (0.2-1.0); CALCIUM, SERUM 8.2 mg/dL (8.5-10.1); CREATININE 0.9 mg/dL (0.6-1.3); MAGNESIUM 2.2 mg/dL (1.8-2.4); PHOSPHORUS 3.7 mg/dL (2.5-4.9); POTASSIUM 3.9 mmol/L (3.5-5.1); TOTAL PROTEIN, SERUM 7.8 g/dL (6.4-8.2)
[2022-07-07] MEDS: PANTOPRAZOLE 40 MG VIAL IV SCH ×2 (08:41→20:48)
[2022-07-07 16:28] LABS: EOSINOPHILS % (MANUAL) 8 % (0-4); LYMPHOCYTES % (MANUAL) 21 % (16-48); MONOCYTES % (MANUAL) 6 % (0-11.0); NEUTROPHILS % (MANUAL) 65 (42-76)
[2022-07-07] MEDS: ACETAMINOPHEN 325 MG TABLET PO PRN (17:00)
--- NOTE | 2022-07-07 18:53 | NUR ---
RN Closing Note Patient AOx4 able to explain his concerns. Patients was at bedside throughout shift providing hearing health technician. All questions answered and educated on importance of following plan of care in hospital and after discharge. Patient states he will establish care with a PCP and monitor hemoglobin levels. All safety precautions taken, call light and table within reach and bed at lowest position. Will endorse report to night nurse for continuity of care.
--- NOTE | 2022-07-07 19:30 | NUR ---
CALENDERING MACHINE OPERATOR OPENING NOTE RECEIVED PT AWAKE IN BED. A/O X4 AND ABLE TO MAKE NEEDS KNOWN. AND DAUGHTER AT BEDSIDE. PT STABLE ON ROOM AIR. NO SOB OR S/S OF RESPIRATORY DISTRESS. BREATHING EVEN AND UNLABORED. ON EXTERNAL STRATEGIC PLANNING MANAGER READING SR 96 BPM. IV ACCESS CINDY MIDLINE, INTACT AND PATENT. SAFETY PRECAUTIONS IN PLACE. BED IN LOWEST LOCKED POSITION, HOB ELEVATED, SIDE RAILS UP X2, AND CALL LIGHT AND TABLE WITHIN REACH. ALL NEEDS MET AT THIS TIME.
--- NOTE | 2022-07-07 22:20 | NUR ---
RN NOTE PT REQUESTED SLEEPING PILL. ADMINISTERED AMBIEN 5 MG FOR SLEEPING ORDERED. MADE COMFORTABLE IN BED. ALL NEEDS MET AT THIS TIME.
[2022-07-08] MEDS: PIPERACILLIN /TAZOBACTAM 3.375 G in IV D5W 100 ML IV SCH ×2 (01:39→10:42)
[2022-07-08 06:40] LABS: BASOPHILS % (AUTO) 0.5 % (0.0-2.0); EOSINOPHILS % (AUTO) 6.3 % (0.0-6.0); HEMATOCRIT 26 % (39-51); HEMOGLOBIN 7.6 g/dL (13.5-17.5); LYMPHOCYTES # (AUTO) 1.2 K/uL (0.8-4.8); LYMPHOCYTES % (AUTO) 16.2 % (20.0-44.0); MEAN CORPUSCULAR HGB CONC 30 g/dl (31.0-36.0); MEAN CORPUSCULAR VOLUME 58 fL (80-96); MONOCYTES # (AUTO) 0.6 K/uL (0.1-1.30); MONOCYTES % (AUTO) 8.1 % (2.0-12.0); NEUTROPHILS # (AUTO) 5.1 K/uL (1.8-8.9); NEUTROPHILS % (AUTO) 68.9 % (43.0-81.0); PLATELET COUNT (AUTO) 339 K/uL (150-450); RED BLOOD CELL COUNT(AUTO) 4.48 MIL/uL (4.5-6.0); WHITE BLOOD COUNT (AUTO) 7.4 K/uL (4.3-11.0)
--- NOTE | 2022-07-08 06:47 | NUR ---
LOKIE ENGINEER CLOSING NOTE PT AWAKE IN BED. A/O X4 AND ABLE TO MAKE NEEDS KNOWN. PT STABLE ON ROOM AIR. NO SOB OR S/S OF RESPIRATORY DISTRESS. BREATHING EVEN AND UNLABORED. ON EXTERNAL UNIX CONSULTANT READING SR 67 BPM WITH ARRYTHMIA, PACS, AND PVCS. ALSO HAD PAUSE OF 4.59 SECONDS AT 0519 WITH HR OF 39. LEFT MESSAGE FOR DR MEI, NO RESPONSE YET, WILL ENDORSE. IV ACCESS CINDY MIDLINE, INTACT AND PATENT, RUNNING NS @ 125 ML/HR. ALL DUE MEDS GIVEN ORDERED. SAFETY PRECAUTIONS IN PLACE AT ALL TIMES. BED IN LOWEST LOCKED POSITION, HOB ELEVATED, SIDE RAILS UP X2, AND CALL LIGHT AND TABLE WITHIN REACH. ALL NEEDS MET AT THIS TIME AND WILL ENDORSE TO ONCOMING NURSE FOR VALDEZ.
[2022-07-08 07:18] LABS: CALCIUM, SERUM 8.4 mg/dL (8.5-10.1); MAGNESIUM 2.3 mg/dL (1.8-2.4); PHOSPHORUS 4.4 mg/dL (2.5-4.9)
--- NOTE | 2022-07-08 08:02 | NUR ---
RN Receiving Report. Patient AOx4 able to express his own concerns. Patient made aware of plan of care and agrees. States he is ready to go home as soon as he knows his hemoglobin is stable. Patient in bed with no signs of distress or discomfort. All safety precautions taken, call light and table within reach, bed at lowest position. Patients vital signs stable, oxygen saturation 100%, no signs of respiratory distress.
[2022-07-08] MEDS: PANTOPRAZOLE 40 MG VIAL IV SCH (09:15)
[2022-07-08] MEDS ORDERED: FERR325T23 PO (13:42)
--- NOTE | 2022-07-08 14:30 | NUR ---
computer programming professor Note Patient AOx4 able to express his own concerns. at bedside, educated on importance of following up with specialist and PCP. Patient discharge safely to main entrance. will drive him home and help him at home. All safety precautions taken.
[2022-07-08] MEDS: IRON SUCROSE COMPLEX 200 MG in IV NS 0.9% 100 ML IV SCH (14:34)
[2022-07-08] MEDS: ACETAMINOPHEN 325 MG TABLET PO PRN (14:52)
== END 2022-07-08 16:15 | disposition home or self-care (01) | DRG 254 ==
LOC: ER 00:33 → TELE 08:09
PROVIDERS: ADMIT Nurse Practitioner Acute Care; ATTEND Registered Nurse
PROC: 30233N1 Transfusion of Nonautologous Red Blood Cells into Peripheral Vein, Percutaneous Approach (ICD-10-PCS; principal; 2022-07-06)
PROC: 05HF33Z Insertion of Infusion Device into Left Cephalic Vein, Percutaneous Approach (ICD-10-PCS; 2022-07-06)
DX: K60.3 Anal fistula (principal); D62 Acute posthemorrhagic anemia; E66.01 Morbid (severe) obesity due to excess calories; D50.9 Iron deficiency anemia, unspecified; K57.90 Diverticulosis of intestine, part unspecified, without perforation or abscess without bleeding; R00.2 Palpitations; R07.9 Chest pain, unspecified; Z20.822 Contact with and (suspected) exposure to COVID-19; I20.9 Angina pectoris, unspecified; K64.8 Other hemorrhoids; Z86.16 Personal history of COVID-19; Z91.199 Patient's noncompliance with other medical treatment and regimen due to unspecified reason; Z83.3 Family history of diabetes mellitus; Z20.2 Contact with and (suspected) exposure to infections with a predominantly sexual mode of transmission; G47.30 Sleep apnea, unspecified
CPT/HCPCS: 36410; 36415; 71045-TC; 80048-TC; 80053-TC; 82272-TC; 83540-TC; 83735-TC; 84100-TC; 84443-TC; 84484-TC; 85025-TC; 85027-TC; 85610-TC; 86850-TC; 87081-TC; C9113; C9803; G0378; J1756; J2543; J7030; J7050; J7060; P9016

== ENCOUNTER 2023-04-07 10:12 | Emergency (ER) | payer MEDICAID ==
[~2023-04-07] VITALS: Ht 182.9 cm; Wt 145.1 kg
[~2023-04-07 10:12] MED LIST changes: +FERR325T23 PO; -[UNRECOGNIZED DRUG - REMARK]
[2023-04-07] MEDS ORDERED: AZITHROMYCIN 250 MG TABLET PO ONE ×2 (11:00)
[2023-04-07] MEDS ORDERED: CEFTRIAXONE 500 MG VIAL IM ONE (11:00)
[2023-04-07] MEDS ORDERED: AZITHROMYCIN 250 MG TABLET ONE (11:08)
[2023-04-07] MEDS ORDERED: CEFTRIAXONE 500 MG VIAL ONE (11:08)
[2023-04-07] MEDS ORDERED: LIDOCAINE /MPF 1% VIAL 5 ML VIAL ONE (11:09)
[2023-04-07 11:22] VITALS: BP 148/74; TEMP 98; O2SAT 98
[2023-04-08 22:06] LABS: CHLAMYDIA TRACHOMATIS NAA Negative (Negative); NEISSERIA GONORRHOEAE NAA Negative (Negative)
== END 2023-04-07 11:20 | disposition home or self-care (01) ==
LOC: ER 10:21
DX: Z20.2 Contact with and (suspected) exposure to infections with a predominantly sexual mode of transmission (principal); F17.200 Nicotine dependence, unspecified, uncomplicated; Z79.899 Other long term (current) drug therapy; Z98.890 Other specified postprocedural states
CPT/HCPCS: 99283; 96372; 87491; 87591; J0696; J3490

== ENCOUNTER 2023-05-31 23:16 | Inpatient (IN) | payer MEDICAID, OTHER ==
[~2023-05-31] VITALS: Ht 182.9 cm; Wt 149.7 kg
[2023-06-01] VITALS (7 sets, daily range): BP systolic 123–140; BP diastolic 71–83; TEMP 98–99; O2SAT 97–99
[2023-06-01 00:28] LABS: INR 1.03 (0.91-1.10); PARTIAL THROMBOPLASTIN TIME 25.4 SEC (24.3-34.3); PROTHROMBIN TIME 10.9 SECS (9.2-11.1)
[2023-06-01 00:41] LABS: CALCIUM, SERUM 8.5 mg/dL (8.5-10.1); CREATININE 0.9 mg/dL (0.6-1.3); POTASSIUM 3.9 mmol/L (3.5-5.1)
[2023-06-01 00:49] LABS: BASOPHILS # (AUTO) 0.1 K/uL (0.0-0.2); BASOPHILS % (AUTO) 1.3 % (0.0-2.0); EOSINOPHILS # (AUTO) 0.4 K/uL (0.0-0.7); HEMATOCRIT 24 % (39-51); LYMPHOCYTES # (AUTO) 1.8 K/uL (0.8-4.8); LYMPHOCYTES % (AUTO) 32.6 % (20.0-44.0); MEAN CORPUSCULAR HEMOGLOBIN 14 PG (26.0-33.0); MEAN CORPUSCULAR HGB CONC 27 g/dl (31.0-36.0); MEAN CORPUSCULAR VOLUME 53 fL (80-96); MONOCYTES # (AUTO) 0.4 K/uL (0.1-1.30); NEUTROPHILS # (AUTO) 2.9 K/uL (1.8-8.9); NEUTROPHILS % (AUTO) 52.1 % (43.0-81.0); PLATELET COUNT (AUTO) 375 K/uL (150-450); RED BLOOD CELL COUNT(AUTO) 4.57 MIL/uL (4.5-6.0); RED CELL DISTRIBUTION WIDTH 24.3 % (11.5-15.0); WHITE BLOOD COUNT (AUTO) 5.6 K/uL (4.3-11.0)
[2023-06-01 01:11] LABS: HEMOGLOBIN 6.5 g/dL (13.5-17.5)
[2023-06-01] MEDS ORDERED: ONDANSETRON HCL/PF 4 MG/2 ML VIAL IVP PRN (04:30)
[2023-06-01] MEDS: IV NS 0.9% 1,000 ML IV SCH ×2 (04:30→18:09)
[2023-06-01] MEDS ORDERED: hydrALAZINE HCL IV 20 MG VIAL IV PRN (04:30)
[2023-06-01] MEDS ORDERED: MORPHINE SULFATE INJ 2 MG/ML DISP.SYRIN IV PRN (04:30)
[2023-06-01] MEDS ORDERED: ACETAMINOPHEN 325 MG TABLET PO PRN (04:30)
[2023-06-01 05:22] LABS: IRON, SERUM 30 ug/dl (50-175); TOTAL IRON BINDING CAPACITY 379 ug/dl (250-450)
[2023-06-01 05:35] LABS: FERRITIN 5 ng/mL (8-388)
[2023-06-01] MEDS: PANTOPRAZOLE 40 MG VIAL IV SCH ×2 (07:30→16:30)
[2023-06-01 10:14] LABS: HEMOGLOBIN 6.7 g/dL (13.5-17.5)
[2023-06-01 21:32] LABS: HEMOGLOBIN 7.3 g/dL (13.5-17.5)
[2023-06-02 06:45] LABS: ALBUMIN 3.1 g/dL (3.4-5.0); BILIRUBIN,TOTAL 0.2 mg/dL (0.2-1.0); CALCIUM, SERUM 8.6 mg/dL (8.5-10.1); CREATININE 0.8 mg/dL (0.6-1.3); MAGNESIUM 2.2 mg/dL (1.8-2.4); PHOSPHORUS 3.7 mg/dL (2.5-4.9); POTASSIUM 4.1 mmol/L (3.5-5.1); TOTAL PROTEIN, SERUM 8.1 g/dL (6.4-8.2)
[2023-06-02 06:46] LABS: BASOPHILS # (AUTO) 0.1 K/uL (0.0-0.2); EOSINOPHILS # (AUTO) 0.4 K/uL (0.0-0.7); EOSINOPHILS % (AUTO) 8.1 % (0.0-6.0); HEMATOCRIT 27 % (39-51); HEMOGLOBIN 7.3 g/dL (13.5-17.5); LYMPHOCYTES # (AUTO) 1.3 K/uL (0.8-4.8); MEAN CORPUSCULAR HEMOGLOBIN 15 PG (26.0-33.0); MEAN CORPUSCULAR HGB CONC 27 g/dl (31.0-36.0); MEAN CORPUSCULAR VOLUME 55 fL (80-96); MONOCYTES # (AUTO) 0.5 K/uL (0.1-1.30); NEUTROPHILS # (AUTO) 2.6 K/uL (1.8-8.9); NEUTROPHILS % (AUTO) 53.9 % (43.0-81.0); PLATELET COUNT (AUTO) 349 K/uL (150-450); RED BLOOD CELL COUNT(AUTO) 4.89 MIL/uL (4.5-6.0); RED CELL DISTRIBUTION WIDTH 26.7 % (11.5-15.0); WHITE BLOOD COUNT (AUTO) 4.9 K/uL (4.3-11.0)
[2023-06-02] MEDS: IV NS 0.9% 1,000 ML IV SCH (06:52)
[2023-06-02 08:00] VITALS: BP 128/55; TEMP 98.6; O2SAT 98
[2023-06-02] MEDS: PANTOPRAZOLE 40 MG VIAL IV SCH ×2 (08:24→16:26)
[2023-06-02 09:25] LABS: HEMOGLOBIN 7.9 g/dL (13.5-17.5)
[2023-06-02 12:10] LABS: EOSINOPHILS % (MANUAL) 9 % (0-4); LYMPHOCYTES % (MANUAL) 31 % (16-48); MONOCYTES % (MANUAL) 9 % (0-11.0); NEUTROPHILS % (MANUAL) 51 (42-76); PLATELET ESTIMATE ADEQUATE
[2023-06-02 12:11] LABS: ANISOCYTOSIS 1+; HYPOCHROMASIA 2+; OVALOCYTES 1+; TARGET CELLS 1+
[2023-06-02 16:00] VITALS: BP 149/90; TEMP 98.6; O2SAT 99
[2023-06-02 17:19] LABS: HEMOGLOBIN 7.4 g/dL (13.5-17.5)
[2023-06-02 20:00] VITALS: BP 142/72; TEMP 98.7; O2SAT 100
[2023-06-02] MEDS ORDERED: SOD FERRIC GLUC 125 MG in IV NS 0.9% 100 ML IV SCH (20:00)
[2023-06-03 06:56] LABS: BASOPHILS # (AUTO) 0.1 K/uL (0.0-0.2); BASOPHILS % (AUTO) 0.9 % (0.0-2.0); EOSINOPHILS # (AUTO) 0.4 K/uL (0.0-0.7); EOSINOPHILS % (AUTO) 6.5 % (0.0-6.0); HEMATOCRIT 28 % (39-51); HEMOGLOBIN 7.7 g/dL (13.5-17.5); LYMPHOCYTES # (AUTO) 1.6 K/uL (0.8-4.8); MEAN CORPUSCULAR HEMOGLOBIN 15 PG (26.0-33.0); MEAN CORPUSCULAR HGB CONC 28 g/dl (31.0-36.0); MEAN CORPUSCULAR VOLUME 55 fL (80-96); MONOCYTES # (AUTO) 0.5 K/uL (0.1-1.30); MONOCYTES % (AUTO) 8.6 % (2.0-12.0); NEUTROPHILS # (AUTO) 3.1 K/uL (1.8-8.9); PLATELET COUNT (AUTO) 345 K/uL (150-450); RED BLOOD CELL COUNT(AUTO) 5.12 MIL/uL (4.5-6.0); RED CELL DISTRIBUTION WIDTH 26.6 % (11.5-15.0); WHITE BLOOD COUNT (AUTO) 5.6 K/uL (4.3-11.0)
[2023-06-03] MEDS: PANTOPRAZOLE 40 MG VIAL IV SCH (07:39)
[2023-06-03 08:20] LABS: ANISOCYTOSIS 1+; EOSINOPHILS % (MANUAL) 3 % (0-4); HYPOCHROMASIA 1+; LYMPHOCYTES % (MANUAL) 19 % (16-48); MONOCYTES % (MANUAL) 7 % (0-11.0); NEUTROPHILS % (MANUAL) 71 (42-76); OVALOCYTES 1+; PLATELET ESTIMATE ADEQUATE
[2023-06-03 08:23] VITALS: BP 118/62; TEMP 98.7; O2SAT 96
[2023-06-03] MEDS ORDERED: FERR325T23 PO (10:55)
[2023-06-03] MEDS ORDERED: PANT40TA2 PO (10:55)
== END 2023-06-03 12:20 | disposition home or self-care (01) | DRG 241 ==
LOC: ER 23:19 → TRANSITION 06-01 04:22 → MED 06-01 06:10
PROVIDERS: ADMIT Nurse Practitioner Acute Care; ATTEND Nurse Practitioner Acute Care
PROC: 30233N1 Transfusion of Nonautologous Red Blood Cells into Peripheral Vein, Percutaneous Approach (ICD-10-PCS; principal; 2023-06-01)
DX: K25.4 Chronic or unspecified gastric ulcer with hemorrhage (principal); E44.0 Moderate protein-calorie malnutrition; E66.01 Morbid (severe) obesity due to excess calories; D62 Acute posthemorrhagic anemia; Z68.41 Body mass index [BMI] 40.0-44.9, adult; K64.8 Other hemorrhoids; K57.90 Diverticulosis of intestine, part unspecified, without perforation or abscess without bleeding; Z86.16 Personal history of COVID-19; K29.70 Gastritis, unspecified, without bleeding; E88.09 Other disorders of plasma-protein metabolism, not elsewhere classified
CPT/HCPCS: 36415; 70450-TC; 80048-TC; 80053-TC; 82728-TC; 83540-TC; 83605-TC; 83735-TC; 84100-TC; 85025-TC; 85027-TC; 85730-TC; 86850-TC; C9113; G0378; J2270; J2405; J2916; J7030; J7040; P9016

== ENCOUNTER 2023-07-06 08:40 | Emergency (ER) | payer OTHER ==
[~2023-07-06] VITALS: Ht 182.9 cm; Wt 149.7 kg
[~2023-07-06 08:40] MED LIST changes: +PANT40TA2 PO
[2023-07-06 08:57] VITALS: BP 145/89; TEMP 98
[2023-07-06] MEDS ORDERED: CARB15DR12 LEFT EAR (10:26)
[2023-07-06 11:06] VITALS: O2SAT 98
== END 2023-07-06 11:07 | disposition home or self-care (01) ==
LOC: ER 08:44
DX: H61.22 Impacted cerumen, left ear (principal); F17.200 Nicotine dependence, unspecified, uncomplicated; Z79.899 Other long term (current) drug therapy
CPT/HCPCS: 99284; 69200; A6403; A4217